=== PATIENT | male | born 1985 | race Caucasian/White ===

== ENCOUNTER 2025-02-05 00:49 | Observation (INO) | payer OTHER, BC ==
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
[2025-02-05 00:58] LABS: Glucose,Whole Blood 111 mg/dL (70-110)
[2025-02-05] MEDS: HYDROmorphone 0.5 MG/0.5 ML SYRINGE IVP STA (01:00)
[2025-02-05] MEDS: SODIUM CHLORIDE 0.9% 1,000 ML IV STA (01:01)
[2025-02-05 01:16] LABS: Basophils # (A) 0.05 10*3/uL (0.00-0.10); Basophils % (A) 0.5 %; Eosinophils # (A) 0.18 10*3/uL (0.04-0.35); Eosinophils % (A) 1.6 %; HCT 46.1 % (39.6-50.0); HGB 16.5 g/dL (13.0-17.0); Lymphocytes # (A) 2.26 10*3/uL (0.90-5.00); Lymphocytes % (A) 20.4 %; MCH 34.3 pg (27.0-32.0); MCHC 35.8 g/dL (32.0-37.0); MCV 95.8 fL (80.0-97.0); Mean Platelet Volume 9.3 fL (9.5-12.2); Monocytes # (A) 1.16 10*3/uL (0.20-1.00); Monocytes % (A) 10.5 %; Neutrophils # (A) 7.15 10*3/uL (1.80-7.70); Neutrophils % (A) 64.6 %; Platelet Count 325 10*3/uL (140-440); RBC 4.81 10*6/uL (4.40-5.60); WBC 11.06 10*3/uL (4.50-10.00)
[2025-02-05 01:34] LABS: ALT 82 U/L (4-49); AST 98 U/L (17-59); African American GFR (CKD) >90 (>60 ml/min/1.73 sqM); Albumin 4.8 g/dL (3.5-5.0); Alkaline Phosphatase 102 U/L (38-126); Anion Gap 13 mmol/L; Blood Urea Nitrogen 7 mg/dL (9-20); Calcium 9.7 mg/dL (8.4-10.2); Carbon Dioxide 24 mmol/L (22-30); Chloride 104 mmol/L (98-107); Glucose 101 mg/dL (74-99); Non-African American GFR(CKD) >90 (>60 ml/min/1.73 sqM); Potassium 4.2 mmol/L (3.5-5.1); Sodium 141 mmol/L (137-145); Total Bilirubin 0.5 mg/dL (0.2-1.3); Total Protein 7.7 g/dL (6.3-8.2)
[2025-02-05 01:37] LABS: Alcohol 260 mg/dL
[2025-02-05 01:42] LABS: INR 0.9 (<1.2); Partial Thromboplastin Time 22.1 sec (22.0-30.0); Prothrombin Time 10.1 sec (10.0-12.5)
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
--- NOTE | 2025-02-05 02:08 | XR ---
EXAM: XR Pelvis, 1 View CLINICAL HISTORY: ITS.REASON XR Reason: Trauma TECHNIQUE: Frontal view of the pelvis. COMPARISON: No relevant prior studies available. FINDINGS: Bones/joints: No fracture or dislocation. Soft tissues: Unremarkable. IMPRESSION: No fracture
[2025-02-05] MEDS: LIDOCAINE 4% PATCH TOPICAL ONE (02:33)
[2025-02-05] MEDS: DIPH,PERTUS(ACELL)TETVAC-LF 0.5 ML VIAL IM ONE (02:52)
[2025-02-05] MEDS ORDERED: NALOXONE 0.4 MG/ML 1 ML VIAL IV PRN (02:55)
[2025-02-05] MEDS: SODIUM CHLORIDE 0.9% 1,000 ML IV SCH (03:03)
[2025-02-05] MEDS: HYDROmorphone 1 MG/ML 1 ML SYRINGE IVP PRN (03:04)
[2025-02-05 04:14] LABS: Amphetamine Screen,Urine Not Detected (NotDetected); Barbiturate Screen,Urine Not Detected (NotDetected); Benzodiazepines Screen,Urine Not Detected (NotDetected); Cocaine Screen,Urine Not Detected (NotDetected); Methadone Screen, Urine Not Detected (NotDetected); Opiate Screen,Urine Not Detected (NotDetected); Oxycodone Screen, Urine Not Detected (NotDetected); Phencyclidine Screen,Urine Not Detected (NotDetected); Tricyclic Antidepressant,Urine Not Detected (NotDetected); Urn Cannabinoid Scrn Not Detected (NotDetected)
[2025-02-05] MEDS: methocarbamoL 500 MG TAB PO SCH (05:56)
[2025-02-05] MEDS: KETOROLAC 15 MG/ML 1 ML VIAL IVP SCH (05:56)
[2025-02-05] MEDS ORDERED: LORazepam 1 MG TAB PO PRN ×3 (09:09)
[2025-02-05] MEDS ORDERED: LORazepam 0.5 MG TAB PO PRN (09:09)
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
[2025-02-05] MEDS: HYDROmorphone 2 MG/ML 1 ML SYRINGE IVP PRN (11:55)
[2025-02-05] MEDS: MULTIVITAMINS, THERA 1 EACH TAB PO SCH (11:57)
[2025-02-05] MEDS: FOLIC ACID 1 MG TAB PO SCH (11:57)
[2025-02-05] MEDS: THIAMINE 100 MG/ML 2 ML VIAL IM STA (11:57)
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
[2025-02-05] MEDS: ONDANSETRON 4 MG/2 ML VIAL IVP PRN (17:22)
[2025-02-05] MEDS: ENOXAPARIN 40 MG/0.4 ML SYRINGE SQ SCH (20:17)
[2025-02-05] MEDS: FAMOTIDINE 20 MG TAB PO SCH (20:17)
[2025-02-05] MEDS: NICOTINE 21MG/24HR PATCH TRANSDERM SCH (21:54)
[2025-02-06] MEDS: THIAMINE 100 MG TAB PO SCH (08:15)
[2025-02-06] MEDS: LIDOCAINE 4% PATCH TOPICAL SCH (08:17)
[2025-02-06 08:21] VITALS: RESP 17
[2025-02-06 08:36] LABS: Basophils # (A) 0.04 X 10*3/uL (0.00-0.10); Basophils % (A) 0.6 %; Eosinophils # (A) 0.06 X 10*3/uL (0.04-0.35); Eosinophils % (A) 0.9 %; HGB 13.8 g/dL (13.0-17.0); Lymphocytes # (A) 1.55 X 10*3/uL (0.90-5.00); Lymphocytes % (A) 22.4 %; MCH 33.6 pg (27.0-32.0); MCHC 33.7 g/dL (32.0-37.0); MCV 99.8 FL (80.0-97.0); Monocytes # (A) 1.08 X 10*3/uL (0.20-1.00); Monocytes % (A) 15.6 %; NRBC Per 100 WBC 0 X 10*3/uL (0.00-0.01); Neutrophils # (A) 4.16 X 10*3/uL (1.80-7.70); Neutrophils % (A) 60.1 %; Platelet Count 239 X 10*3/uL (140-440); RBC 4.11 X 10*6/uL (4.40-5.60); RDW 12.3 % (11.5-14.5); WBC 6.92 X 10*3/uL (4.50-10.00)
[2025-02-06 09:08] LABS: ALT 66 U/L (10-49); AST 69 U/L (14-35); Albumin 4.1 g/dL (3.8-4.9); Albumin/Globulin Ratio 1.95 Ratio (1.60-3.17); Alkaline Phosphatase 116 U/L (41-126); Blood Urea Nitrogen 5.6 mg/dL (9.0-27.0); Calcium 9.1 mg/dL (8.7-10.3); Carbon Dioxide 26.7 mmol/L (21.6-31.8); Chloride 102 mmol/L (96-109); Globulin 2.1 g/dL (1.6-3.3); Glucose 95 mg/dL (70-110); Sodium 139 mmol/L (135-145); Total Protein 6.2 g/dL (6.2-8.2)
[2025-02-06] MEDS ORDERED: HYDROcodone/APAP 7.5-325MG 1 EACH TAB PO PRN (09:46)
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
[2025-02-06] MEDS: HYDROmorphone 0.5 MG/0.5 ML SYRINGE IVP PRN (13:13)
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
[2025-02-06 17:42] VITALS: BP 148/78; PULSE 82; TEMP 98.1
== END 2025-02-06 19:16 | disposition home or self-care (01) ==
LOC: EC 00:49 → 4SSUR 02:55
PROVIDERS: ADMIT Surgery; ATTEND Surgery
DX: S22.41XA Multiple fractures of ribs, right side, initial encounter for closed fracture (principal); S22.039A Unspecified fracture of third thoracic vertebra, initial encounter for closed fracture; S22.049A Unspecified fracture of fourth thoracic vertebra, initial encounter for closed fracture; S12.600A Unspecified displaced fracture of seventh cervical vertebra, initial encounter for closed fracture; V29.99XA Rider (driver) (passenger) of other motorcycle injured in unspecified traffic accident, initial encounter; F10.129 Alcohol abuse with intoxication, unspecified; Y90.8 Blood alcohol level of 240 mg/100 ml or more; R74.8 Abnormal levels of other serum enzymes; F17.290 Nicotine dependence, other tobacco product, uncomplicated; Z23 Encounter for immunization
CPT/HCPCS: 96376 ×3; 96361 ×3; 96372 ×2; 96375; 90471; 96374; 99291; 36415; 93005; 86900; 86901; 80053 ×2; 83605; 84484; 85025 ×2; 85610; 85730; 86850; 80306; 80320; 72170; 71045; 72125; 70450; 71260; 74177; 72141; 72146; 90715; G0378 ×2; S4990 ×2; J1171 ×5; J3411; J2405; J1650 ×2; J1885 ×2; Q9967